=== PATIENT | male | born 1955 | race Two or more races ===

== ENCOUNTER 2018-02-16 19:02 | Inpatient (IN) | END 2018-02-19 17:24 | disposition home or self-care (01) | DRG 313 ==

== ENCOUNTER 2018-04-18 05:37 | Inpatient (IN) | END 2018-04-25 16:31 | disposition home health service (06) | DRG 221 ==

== ENCOUNTER 2018-05-30 19:52 | Inpatient (IN) | payer OTHER ==
[~2018-05-30] VITALS: Ht 170.2 cm; Wt 107.9 kg
[~2018-05-30 19:52] MED LIST: ASPI-817 PO; ATOR40TA68 PO; ERGO2000 PO; FURO40TA4 PO; GLIP10TA14 PO; LISI-313 PO; METF100010 PO; METO-429 PO; NITR0.4T32 SL; OXYC-438 PO; SITA100T11 PO; TAMS0.4C2 PO
[2018-05-30 20:00] VITALS: Ht 170.2 cm; Wt 107.9 kg
[2018-05-30] MEDS ORDERED: HYDROmorphONE 1 MG/ML SYG IV STA (20:14)
[2018-05-30] MEDS ORDERED: ONDANSETRON 4 MG INJ IV STA ×2 (20:14→21:46)
[2018-05-30] MEDS ORDERED: HYDROmorphONE 2 MG/ML SYG IV STA (21:36)
--- NOTE | 2018-05-30 21:58 | ERD ---
ER Documentation Chief Complaint Chief Complaint abd pain x3 hours +cp. s/p open heart surgery 1 mo ago HPI Patient is a 62-year-old male with coronary disease, hypertension, and diabetes who presents with abdominal pain. The patient denies chest pain. Abdominal pain started 3 hours ago with nausea and vomiting. The patient has no fevers and no diarrhea. The patient did have heart surgery 1 month ago. Patient does have a primary doctor as well. ROS All systems reviewed and are negative except as per history of present illness. Medications Home Meds Active Scripts Lisinopril* (Lisinopril*) 5 Mg Tablet, 5 MG PO DAILY for 30 Days, #30 TAB Prov:RUPALI CARVALHO MD 04/25/18 Atorvastatin* (Atorvastatin*) 40 Mg Tablet, 40 MG PO HS for 30 Days, TAB Prov:RUPALI CARVALHO MD 04/25/18 Furosemide* (Furosemide*) 40 Mg Tablet, 40 MG PO DAILY for 30 Days, TAB Prov:RUPALI CARVALHO MD 04/25/18 Oxycodone HCl/Acetaminophen (Oxycodone-Acetaminophen 5-325) 1 Each Tablet, 1 TAB PO Q3H PRN for PAIN LEVEL 1-5 for 14 Days, TAB Prov:RUPALI CARVALHO MD 04/25/18 Metoprolol Tartrate* (Lopressor*) 50 Mg Tab, 50 MG PO BID for 60 Days, TAB Prov:RUPALI CARVALHO MD 04/25/18 Nitroglycerin* (Nitroglycerin* SL) 0.4 Mg Tab.subl, 1 TAB SL Q5M PRN for ANGINA for 14 Days, #30 Prov:HERB PADGETT MD 02/19/18 Reported Medications Ergocalciferol (Vitamin D2) (VITAMIN D2) 2,000 Unit Tablet, 2000 UNIT PO DAILY, TAB 04/18/18 Glipizide* (Glipizide*) 10 Mg Tablet, 10 MG PO BID, TAB 04/18/18 Metformin Hcl* (Metformin Hcl*) 1,000 Mg Tablet, 1000 MG PO WITH BREAKFAST DINNE, #60 TAB 04/18/18 Sitagliptin* (Januvia*) 100 Mg Tablet, 100 MG PO DAILY, #30 TAB 02/16/18 Aspirin* (Aspirin* EC) 81 Mg Tablet.dr, 81 MG PO DAILY, TAB 02/16/18 Tamsulosin Hcl* (Tamsulosin Hcl*) 0.4 Mg Cap.er.24h, 0.4 MG PO HS, CAP 02/16/18 Allergies Allergies: Coded Allergies: No Known Allergy (Unverified , 04/18/18) PMhx/Soc History of Surgery: Yes (OPEN HEART SX) Anesthesia Reaction: No Hx Neurological Disorder: No Hx Respiratory Disorders: No Hx Cardiac Disorders: Yes (HTN, CAD, AORTIC VALVE STENOSIS) Hx Psychiatric Problems: No Hx Miscellaneous Medical Probl: Yes ( DM) Hx Alcohol Use: No (QUIT 05/15) Hx Substance Use: No Hx Tobacco Use: Yes (QUIT 05/15) Smoking Status: Former smoker FmHx Family History: diabetes Physical Exam Vitals Vital Signs Date Temp Pulse Resp B/P (MAP) Pulse Ox O2 O2 Flow FiO2 Time Delivery Rate 05/30/18 74 20 158/101 100 Room Air 20:21 (120) 05/30/18 97.8 65 22 214/134 97 20:00 (160) Physical Exam Const: Moderate distress Head: Atraumatic Eyes: Normal Conjunctiva ENT: Normal External Ears, Nose and Mouth. Neck: Full range of motion. No meningismus. Resp: Clear to auscultation bilaterally Cardio: Regular rate and rhythm, no murmurs Abd: Soft, diffuse tenderness to palpation without rebound or guarding Skin: No petechiae or rashes Back: No midline or flank tenderness Ext: No cyanosis, or edema Neur: Awake and alert Psych: Normal Mood and Affect Result Diagram: 05/30/18201505/30/18 2016 Results 24 hrs Laboratory Tests Test 05/30/18 20:16 05/30/18 21:00 White Blood Count 13.1 10^3/ul Red Blood Count 4.22 10^6/ul Hemoglobin 11.4 g/dl Hematocrit 34.8 % Mean Corpuscular Volume 82.5 fl Mean Corpuscular Hemoglobin 27.0 pg Mean Corpuscular Hemoglobin Concent 32.8 g/dl Red Cell Distribution Width 12.9 % Platelet Count 262 10^3/UL Mean Platelet Volume 10.2 fl Immature Granulocytes % 0.600 % Neutrophils % 69.9 % Lymphocytes % 22.2 % Monocytes % 5.0 % Eosinophils % 2.0 % Basophils % 0.3 % Nucleated Red Blood Cells % 0.0 /100WBC Immature Granulocytes # 0.080 10^3/ul Neutrophils # 9.2 10^3/ul Lymphocytes # 2.9 10^3/ul Monocytes # 0.7 10^3/ul Eosinophils # 0.3 10^3/ul Basophils # 0.0 10^3/ul Nucleated Red Blood Cells # 0.0 10^3/ul Prothrombin Time 11.9 Sec Prothrombin Time Ratio 0.9 INR International Normalized Ratio 0.87 Activated Partial Thromboplast Time 23.8 Sec Sodium Level 139 mmol/L Potassium Level 4.1 mmol/L Chloride Level 100 mmol/L Carbon Dioxide Level 28 mmol/L Anion Gap 11 Blood Urea Nitrogen 22 mg/dl Creatinine 0.96 mg/dl Est Glomerular Filtrat Rate mL/min > 60 mL/min Glucose Level 303 mg/dl Calcium Level 9.6 mg/dl Total Bilirubin 0.0 mg/dl Direct Bilirubin 0.00 mg/dl Indirect Bilirubin 0.0 mg/dl Aspartate Amino Transf (AST/SGOT) 17 IU/L Alanine Aminotransferase (ALT/SGPT) 24 IU/L Alkaline Phosphatase 109 IU/L Troponin I < 0.012 ng/ml Total Protein 7.7 g/dl Albumin 4.3 g/dl Globulin 3.40 g/dl Albumin/Globulin Ratio 1.26 Lipase 158 U/L Urine Color YELLOW Urine Clarity CLEAR Urine pH 5.0 Urine Specific [place] 1.027 Urine Ketones TRACE mg/dL Urine Nitrite NEGATIVE mg/dL Urine Bilirubin NEGATIVE mg/dL Urine Urobilinogen NEGATIVE mg/dL Urine Leukocyte Esterase NEGATIVE Lucinda/ul Urine Microscopic RBC 1 /HPF Urine Microscopic WBC 0 /HPF Urine Bacteria FEW /HPF Urine Hemoglobin NEGATIVE mg/dL Urine Glucose 3+ mg/dL Urine Total Protein 2+ mg/dl Current Medications Medications Dose Sig/Jewel Start Time Status Last (Trade) Ordered Route PRN Stop Time Admin Dose Reason Admin 1 mg ONCE STAT 05/30/18 DC 05/30/18 Hydromorphone IV 20:14 05/30/18 20:27 HCl 20:15 (Dilaudid) Ondansetron 4 mg ONCE STAT 05/30/18 DC 05/30/18 HCl (Zofran IV 20:14 05/30/18 20:27 Inj) 20:15 1 mg ONCE STAT 05/30/18 DC 05/30/18 Hydromorphone IV 21:36 1/2/19 21:51 HCl 21:37 (Dilaudid) Ampicillin 100 ml @ ONCE ONCE 05/30/18 Sodium/ 100 mls/hr IVPB 22:00 05/30/18 Sulbactam 22:59 Sodium Ondansetron 4 mg ONCE STAT 05/30/18 DC 05/30/18 HCl (Zofran IV 21:46 05/30/18 21:50 Inj) 21:47 Ondansetron 4 mg BRIDGE ORDER 05/30/18 HCl (Zofran PRN IV 22:00 05/31/18 Inj) NAUSEA AND/OR 21:59 VOMITING 650 mg ER BRIDGE 05/30/18 Acetaminophen PRN PO MILD 22:00 05/31/18 (Tylenol PAIN(1-3)OR 21:59 Tab) ELEVATED TEMP Procedures/MDM CT abdomen pelvis shows findings consistent with acute cholecystitis per radiology. Ultrasound of the gallbladder pending per radiology. X-ray read by radiology. EKG read by me: Rate/Rhythm: Regular rate and rhythm at a rate of 76 Intervals: Normal Impression: No evidence of ischemia or arrhythmia Patient is a 62-year-old male who presents with abdominal pain. The patient was found to have acute cholecystitis on CT scan of the abdomen and pelvis. The patient is a [facility] patient and I spoke with Dr. Padgett for admission to a medical surgical bed. Unasyn was given. I spoke with Dr. Cross her surgeon transcriptionist who will see the patient for consultation and likely gallbladder removal. Departure Diagnosis: Primary Impression: Acute cholecystitis Condition: GAB Mueller MD May 30, 2018 21:58
[2018-05-30] MEDS ORDERED: ONDANSETRON 4 MG INJ IV PRN ×2 (22:00→23:30)
[2018-05-30] MEDS ORDERED: ACETAMINOPHEN 325 MG TAB PO PRN ×2 (22:00→23:30)
[2018-05-30] MEDS ORDERED: AMPICILLIN/SULB 3 GM/NS (PMX) 100 ML IVPB ONE (22:00)
[2018-05-30] MEDS ORDERED: LANT3I SC (22:41)
[2018-05-30] MEDS: METOPROLOL 50 MG TAB PO SCH (23:24)
[2018-05-30] MEDS ORDERED: NITROGLYCERIN (SL) 0.4 MG TAB SL PRN (23:30)
[2018-05-30] MEDS ORDERED: morphine 2 MG INJ IV PRN (23:30)
[2018-05-30] MEDS ORDERED: MAGNESIUM HYDROXIDE 30ML CUP PO PRN (23:30)
[2018-05-30] MEDS ORDERED: hydrALAzine 20 MG INJ IV PRN (23:30)
[2018-05-30] MEDS ORDERED: BISACODYL (EC) 5 MG TAB PO PRN (23:30)
[2018-05-30] MEDS ORDERED: ACETAMINOPHEN 650 MG SUPP PR PRN (23:30)
[2018-05-30] MEDS ORDERED: NACL 0.9% 3 ML SYG IV SCH (23:30)
[2018-05-30] MEDS ORDERED: DOCUSATE SODIUM 100 MG CAP PO PRN (23:30)
[2018-05-31] VITALS (10 sets, daily range): BP systolic 105–211; BP diastolic 52–98; PULSE 91–111; RESP 18–20
[2018-05-31] MEDS: DEXTROSE 5%-0.45% NACL 1,000 ML IV SCH ×3 (00:54→19:50)
[2018-05-31] MEDS: morphine 4 MG/ML VIAL IV PRN ×3 (00:54→22:50)
[2018-05-31] MEDS: HYDROCODONE/APAP (5/325) TAB PO PRN ×2 (01:48→08:28)
[2018-05-31] MEDS: PANTOPRAZOLE 40 MG INJ IV SCH (06:00)
[2018-05-31] MEDS: METOPROLOL 50 MG TAB PO SCH ×2 (08:20→21:00)
[2018-05-31] MEDS: LISINOPRIL 5 MG TAB PO SCH (08:21)
[2018-05-31] MEDS: FUROSEMIDE 40 MG TAB PO SCH (08:21)
[2018-05-31] MEDS: CEFTRIAXONE 1 GM/50 ML (PMX) 50 ML IVPB SCH (08:21)
[2018-05-31] MEDS ORDERED: GLUCOSE GEL 15 GRAM TUBE PO PRN ×2 (08:30)
[2018-05-31] MEDS ORDERED: GLUCAGON 1 MG INJ IM PRN (08:30)
[2018-05-31] MEDS ORDERED: GLUCOSE GEL 15 GRAM TUBE BUCCAL PRN (08:30)
[2018-05-31] MEDS ORDERED: DEXTROSE 50% 50 ML SYRINGE IV PRN ×2 (08:30)
--- NOTE | 2018-05-31 09:27 | CONS ---
Date/Time of Note Date/Time of Note DATE: 05/31/18 TIME: 09:22 Assessment/Plan Assessment/Plan Assessment/Plan Disparity between CT scan and ultrasound regarding the presence of gallstone and cholecystitis. Recommend: HIDA scan. Further recommendations will be forthcoming based on the patient's further workup and clinical course. I will follow with you. Result Diagram: 05/30/18201505/30/182015 Results 24hrs Laboratory Tests Test 05/30/18 20:16 05/30/18 21:00 05/31/18 04:27 White Blood Count 13.1 #H Red Blood Count 4.22 #L Hemoglobin 11.4 L Hematocrit 34.8 L Mean Corpuscular Volume 82.5 Mean Corpuscular Hemoglobin 27.0 L Mean Corpuscular Hemoglobin Concent 32.8 Red Cell Distribution Width 12.9 Platelet Count 262 Mean Platelet Volume 10.2 Immature Granulocytes % 0.600 H Neutrophils % 69.9 Lymphocytes % 22.2 Monocytes % 5.0 Eosinophils % 2.0 Basophils % 0.3 Nucleated Red Blood Cells % 0.0 Immature Granulocytes # 0.080 H Neutrophils # 9.2 H Lymphocytes # 2.9 Monocytes # 0.7 Eosinophils # 0.3 Basophils # 0.0 Nucleated Red Blood Cells # 0.0 Prothrombin Time 11.9 Prothrombin Time Ratio 0.9 INR International Normalized Ratio 0.87 Activated Partial Thromboplast Time 23.8 Sodium Level 139 Potassium Level 4.1 Chloride Level 100 Carbon Dioxide Level 28 Anion Gap 11 Blood Urea Nitrogen 22 H Creatinine 0.96 Est Glomerular Filtrat Rate mL/min > 60 Glucose Level 303 H Calcium Level 9.6 Total Bilirubin 0.0 L Direct Bilirubin 0.00 Indirect Bilirubin 0.0 Aspartate Amino Transf (AST/SGOT) 17 Alanine Aminotransferase (ALT/SGPT) 24 Alkaline Phosphatase 109 Troponin I < 0.012 Total Protein 7.7 Albumin 4.3 Globulin 3.40 H Albumin/Globulin Ratio 1.26 Lipase 158 Urine Color YELLOW Urine Clarity CLEAR Urine pH 5.0 Urine Specific [place] 1.027 Urine Ketones TRACE A Urine Nitrite NEGATIVE Urine Bilirubin NEGATIVE Urine Urobilinogen NEGATIVE Urine Leukocyte Esterase NEGATIVE Urine Microscopic RBC 1 Urine Microscopic WBC 0 Urine Bacteria FEW A Urine Hemoglobin NEGATIVE Urine Glucose 3+ H Urine Total Protein 2+ H Hemoglobin A1c 7.7 H Consultation Date/Type/Reason Admit Date/Time May 30, 2018 at 21:50 Date of Consultation: May 31, 2018 Type of Consult General surgery Reason for Consultation Possible cholecystitis Hx of Present Illness The patient is a 62-year-old gentleman who was approximately 1 month status post open heart surgery. He presented to the emergency room with epigastric abdominal pain. CT scan showed a stone in the gallbladder with gallbladder wall thickening compatible with acute cholecystitis. A follow-up ultrasound however showed no gallstone, no gallbladder wall thickening and no evidence of cholecystitis. Since his admission. The patient's symptoms have improved if not resolved. He has had no fevers or chills. Constitutional: no complaints, improved Eyes: no complaints ENT: no complaints Respiratory: no complaints Cardiovascular: other (Open heart surgery 1 month ago. Hypertension. Aortic stenosis.) Gastrointestinal: pain (Epigastrium) Genitourinary: no complaints Musculoskeletal: no complaints Skin: no complaints Neurologic: no complaints Endocrine: other (Diabetes mellitus) Past Medical History Medical History: angina, coronary artery disease, other (Aortic stenosis) Medications Current Medications Furosemide (Lasix) 40 mg DAILY PO Last administered on 05/31/18at 08:21; Admin Dose 40 MG; Start 05/31/18 at 09:00 Lisinopril (Zestril) 5 mg DAILY PO Last administered on 05/31/18at 08:21; Admin Dose 5 MG; Start 05/31/18 at 09:00 Metoprolol Tartrate (Lopressor) 50 mg BID PO Last administered on 05/31/18at 08:20; Admin Dose 50 MG; Start 05/30/18 at 23:30 Atorvastatin Calcium (Lipitor) 40 mg HS PO ; Start 05/31/18 at 21:00 Nitroglycerin (Nitroglycerin (Sl Tab) 0.4 Mg) 1 tab Q5M PRN SL ANGINA; Start 05/30/18 at 23:30 Tamsulosin HCl (Flomax) 0.4 mg HS PO ; Start 05/31/18 at 21:00 Dextrose/Sodium Chloride 1,000 ml @ 60 mls/hr [id number] IV Last administered on 05/31/18at 00:54; Admin Dose 60 MLS/HR; Start 05/30/18 at 23:26 IV Flush (NS 3 ml) 3 ml PER PROTOCOL IV ; Start 05/30/18 at 23:30 Ondansetron HCl (Zofran Inj) 4 mg Q6H PRN IV NAUSEA AND/OR VOMITING; Start 05/30/18 at 23:30 Acetaminophen (Tylenol Tab) 650 mg Q6H PRN PO PAIN LEVEL 1-3 OR FEVER; Start 05/30/18 at 23:30 Acetaminophen (Tylenol Supp) 650 mg Q6H PRN MT PAIN LEVEL 1-3 OR FEVER; Start 05/30/18 at 23:30 Acetaminophen/ Hydrocodone Bitart ([place] (5/325)) 1 tab Q6H PRN PO MODERATE PAIN LEVEL 4-6 Last administered on 05/31/18at 08:28; Admin Dose 1 TAB; Start 05/30/18 at 23:30 Docusate Sodium (Colace) 100 mg Q12H PRN PO CONSTIPATION; Start 05/30/18 at 23:30 Magnesium Hydroxide (Milk Of Mag) 30 ml DAILY PRN PO CONSTIPATION; Start 05/30/18 at 23:30 Bisacodyl (Dulcolax) 5 mg DAILY PRN PO CONSTIPATION; Start 05/30/18 at 23:30 Pantoprazole (Protonix Iv) 40 mg DAILY@06 IV ; Start 05/31/18 at 06:00 Hydralazine HCl (Apresoline) 20 mg Q6 PRN IV for sbp>170 Last administered on 05/31/18at 02:59; Admin Dose 20 MG; Start 05/30/18 at 23:30 Ceftriaxone Sodium 50 ml @ 100 mls/hr DAILY IVPB Last administered on 05/31/18at 08:21; Admin Dose 100 MLS/HR; Start 05/31/18 at 09:00 Morphine Sulfate (morphine) 2 mg Q4H PRN IV SEVERE PAIN LEVEL 7-10 Last administered on 05/31/18at 05:05; Admin Dose 2 MG; Start 05/31/18 at 00:40 Diagnostic Test (Pha) (Accu-Chek) 1 ea 02 XX ; Start 06/01/18 at 02:00 Insulin Aspart (Novolog Insulin Pen) NOVOLOG *MODERATE* ALGORI... Q4 SC ; Start 05/31/18 at 09:00 Miscellaneous Information 1 ea NOTE XX ; Start 05/31/18 at 08:30 Glucose (Glutose) 15 gm Q15M PRN PO DECREASED GLUCOSE; Start 05/31/18 at 08:30 Glucose (Glutose) 22.5 gm Q15M PRN PO DECREASED GLUCOSE; Start 05/31/18 at 08:30 Dextrose (D50w Syringe) 25 ml Q15M PRN IV DECREASED GLUCOSE; Start 05/31/18 at 08:30 Dextrose (D50w Syringe) 50 ml Q15M PRN IV DECREASED GLUCOSE; Start 05/31/18 at 08:30 Glucagon (Glucagen) 1 mg Q15M PRN IM DECREASED GLUCOSE; Start 05/31/18 at 08:30 Glucose (Glutose) 15 gm Q15M PRN BUCCAL DECREASED GLUCOSE; Start 05/31/18 at 08:30 Allergies: Coded Allergies: No Known Allergy (Unverified , 05/30/18) Past Surgical History Past Surgical Hx: coronary bypass surgery, other Family History Significant Family History: no pertinent family hx Social History Smoking Status: Former smoker Exam/Review of Systems Vital Signs Vitals Vital Signs Date Temp Pulse Resp B/P (MAP) Pulse Ox O2 O2 Flow FiO2 Time Delivery Rate 05/31/18 108 172/78 08:51 (109) 05/31/18 98.3 18 99 Room Air 07:51 Intake and Output 05/30/18 05/30/18 05/31/18 1515:00 23:00 07:00 IntakeIntake Total 100 ml 400 ml OutputOutput Total 500 ml BalanceBalance 100 ml -100 ml Exam Constitutional: alert, oriented Psych: no complaints Head: normocephalic Eyes: nl conjunctiva ENMT: nl external ears & nose Neck: supple Respiratory: clear to auscultation Cardiovascular: regular rate and rhythm, other (Healed thoracotomy.) Gastrointestinal: soft, non-tender (There is a healing drain site in the epigastrium), distended Musculoskeletal: nl extremities to inspection Extremities: normal pulses Neurological: nl mental status Medications Medications Current Medications Furosemide (Lasix) 40 mg DAILY PO Last administered on 05/31/18at 08:21; Admin Dose 40 MG; Start 05/31/18 at 09:00 Lisinopril (Zestril) 5 mg DAILY PO Last administered on 05/31/18at 08:21; Admin Dose 5 MG; Start 05/31/18 at 09:00 Metoprolol Tartrate (Lopressor) 50 mg BID PO Last administered on 05/31/18at 08:20; Admin Dose 50 MG; Start 05/30/18 at 23:30 Atorvastatin Calcium (Lipitor) 40 mg HS PO ; Start 05/31/18 at 21:00 Nitroglycerin (Nitroglycerin (Sl Tab) 0.4 Mg) 1 tab Q5M PRN SL ANGINA; Start 05/30/18 at 23:30 Tamsulosin HCl (Flomax) 0.4 mg HS PO ; Start 05/31/18 at 21:00 Dextrose/Sodium Chloride 1,000 ml @ 60 mls/hr [id number] IV Last administered on 05/31/18at 00:54; Admin Dose 60 MLS/HR; Start 05/30/18 at 23:26 IV Flush (NS 3 ml) 3 ml PER PROTOCOL IV ; Start 05/30/18 at 23:30 Ondansetron HCl (Zofran Inj) 4 mg Q6H PRN IV NAUSEA AND/OR VOMITING; Start 05/30/18 at 23:30 Acetaminophen (Tylenol Tab) 650 mg Q6H PRN PO PAIN LEVEL 1-3 OR FEVER; Start 05/30/18 at 23:30 Acetaminophen (Tylenol Supp) 650 mg Q6H PRN MT PAIN LEVEL 1-3 OR FEVER; Start 05/30/18 at 23:30 Acetaminophen/ Hydrocodone Bitart ([place] (5/325)) 1 tab Q6H PRN PO MODERATE PAIN LEVEL 4-6 Last administered on 05/31/18at 08:28; Admin Dose 1 TAB; Start 05/30/18 at 23:30 Docusate Sodium (Colace) 100 mg Q12H PRN PO CONSTIPATION; Start 05/30/18 at 23:30 Magnesium Hydroxide (Milk Of Mag) 30 ml DAILY PRN PO CONSTIPATION; Start 05/30/18 at 23:30 Bisacodyl (Dulcolax) 5 mg DAILY PRN PO CONSTIPATION; Start 05/30/18 at 23:30 Pantoprazole (Protonix Iv) 40 mg DAILY@06 IV ; Start 05/31/18 at 06:00 Hydralazine HCl (Apresoline) 20 mg Q6 PRN IV for sbp>170 Last administered on 05/31/18at 02:59; Admin Dose 20 MG; Start 05/30/18 at 23:30 Ceftriaxone Sodium 50 ml @ 100 mls/hr DAILY IVPB Last administered on 05/31/18at 08:21; Admin Dose 100 MLS/HR; Start 05/31/18 at 09:00 Morphine Sulfate (morphine) 2 mg Q4H PRN IV SEVERE PAIN LEVEL 7-10 Last administered on 05/31/18at 05:05; Admin Dose 2 MG; Start 05/31/18 at 00:40 Diagnostic Test (Pha) (Accu-Chek) 1 ea 02 XX ; Start 06/01/18 at 02:00 Insulin Aspart (Novolog Insulin Pen) NOVOLOG *MODERATE* ALGORI... Q4 SC ; Start 05/31/18 at 09:00 Miscellaneous Information 1 ea NOTE XX ; Start 05/31/18 at 08:30 Glucose (Glutose) 15 gm Q15M PRN PO DECREASED GLUCOSE; Start 05/31/18 at 08:30 Glucose (Glutose) 22.5 gm Q15M PRN PO DECREASED GLUCOSE; Start 05/31/18 at 08:30 Dextrose (D50w Syringe) 25 ml Q15M PRN IV DECREASED GLUCOSE; Start 05/31/18 at 08:30 Dextrose (D50w Syringe) 50 ml Q15M PRN IV DECREASED GLUCOSE; Start 05/31/18 at 08:30 Glucagon (Glucagen) 1 mg Q15M PRN IM DECREASED GLUCOSE; Start 05/31/18 at 08:30 Glucose (Glutose) 15 gm Q15M PRN BUCCAL DECREASED GLUCOSE; Start 05/31/18 at 08:30 REGULO RUSSO MD May 31, 2018 09:27
[2018-05-31] MEDS: INSULIN ASPART [NOVOLOG] 3 ML PEN SC SCH ×4 (10:33→21:02)
--- NOTE | 2018-05-31 15:06 | QN ---
Documentation Comment seen and examined RUPALI CARVALHO MD May 31, 2018 15:06
[2018-05-31] MEDS: metroNIDAZOLE 500 MG/NS (PMX) 100 ML IVPB SCH ×2 (16:08→22:38)
--- NOTE | 2018-05-31 18:28 | CONS ---
Date/Time of Note Date/Time of Note DATE: 05/31/18 TIME: 18:23 Assessment/Plan Assessment/Plan Assessment/Plan Preoperative cardiac risk stratification Abdominal pain Severe aortic stenosis status post bioprosthetic 23 mm Medtronic aortic valve replacement 04/18/2018 Severe obstructive coronary artery disease status post CABG x4, KHANNA to LAD, SVG to diagonal artery sequence to OM1 sequenced to OM2 and ligation of left atrial appendage 04/18/2018 Diabetes Obesity -Patient presents with abdominal pain and underwent workup for possible cholecystitis. Patient with good exercise capacity after surgery, able to climb 2 flights of stairs without symptoms of chest pain or shortness of breath. ECG with no significant ischemic abnormalities. At the current time, patient is at an intermediate risk for any untoward cardiac events before gallbladder surgery, the benefits likely outweigh the risks. Result Diagram: 05/30/18201505/30/182015 Results 24hrs Laboratory Tests Test 05/30/18 20:16 05/30/18 21:00 05/31/18 04:27 05/31/18 10:26 White Blood Count 13.1 #H Red Blood Count 4.22 #L Hemoglobin 11.4 L Hematocrit 34.8 L Mean Corpuscular Volume 82.5 Mean Corpuscular 27.0 L Hemoglobin Mean Corpuscular 32.8 Hemoglobin Concent Red Cell Distribution 12.9 Width Platelet Count 262 Mean Platelet Volume 10.2 Immature Granulocytes % 0.600 H Neutrophils % 69.9 Lymphocytes % 22.2 Monocytes % 5.0 Eosinophils % 2.0 Basophils % 0.3 Nucleated Red Blood 0.0 Cells % Immature Granulocytes # 0.080 H Neutrophils # 9.2 H Lymphocytes # 2.9 Monocytes # 0.7 Eosinophils # 0.3 Basophils # 0.0 Nucleated Red Blood 0.0 Cells # Prothrombin Time 11.9 Prothrombin Time Ratio 0.9 INR International 0.87 Normalized Ratio Activated 23.8 Partial Thromboplast Time Sodium Level 139 Potassium Level 4.1 Chloride Level 100 Carbon Dioxide Level 28 Anion Gap 11 Blood Urea Nitrogen 22 H Creatinine 0.96 Est Glomerular Filtrat > 60 Rate mL/min Glucose Level 303 H Calcium Level 9.6 Total Bilirubin 0.0 L Direct Bilirubin 0.00 Indirect Bilirubin 0.0 Aspartate Amino 17 Transf (AST/SGOT) Alanine 24 Aminotransferase (ALT/SG PT) Alkaline Phosphatase 109 Troponin I < 0.012 Total Protein 7.7 Albumin 4.3 Globulin 3.40 H Albumin/Globulin Ratio 1.26 Lipase 158 Urine Color YELLOW Urine Clarity CLEAR Urine pH 5.0 Urine Specific Point 1.027 Urine Ketones TRACE A Urine Nitrite NEGATIVE Urine Bilirubin NEGATIVE Urine Urobilinogen NEGATIVE Urine Leukocyte Esterase NEGATIVE Urine Microscopic RBC 1 Urine Microscopic WBC 0 Urine Bacteria FEW A Urine Hemoglobin NEGATIVE Urine Glucose 3+ H Urine Total Protein 2+ H Hemoglobin A1c 7.7 H Bedside Glucose 252 H Test 05/31/18 13:26 05/31/18 17:41 Bedside Glucose 181 129 Consultation Date/Type/Reason Admit Date/Time May 30, 2018 at 21:50 Type of Consult cv Reason for Consultation Preoperative cardiac risk stratification Hx of Present Illness This is a 62-year-old male with past medical history of aortic stenosis status post aortic valve replacement, CAD status post CABG who presents with worsening abdominal pain and nausea over the past 1-2 days. Patient denies any chest pain, shortness of breath, dizziness or lightheadedness. He has been doing well since his recent open heart surgery. He is able to climb at least 2 flights of stairs without any symptoms of chest pain or shortness of breath. 12 point review of systems was performed with all pertinent positives and negatives mentioned above and all else is negative Past Medical History Medical History: coronary artery disease, diabetes, hypertension, other (Aortic stenosis) Medications Current Medications Furosemide (Lasix) 40 mg DAILY PO Last administered on 05/31/18at 08:21; Admin Dose 40 MG; Start 05/31/18 at 09:00 Lisinopril (Zestril) 5 mg DAILY PO Last administered on 05/31/18at 08:21; Admin Dose 5 MG; Start 05/31/18 at 09:00 Metoprolol Tartrate (Lopressor) 50 mg BID PO Last administered on 05/31/18at 08:20; Admin Dose 50 MG; Start 05/30/18 at 23:30 Atorvastatin Calcium (Lipitor) 40 mg HS PO ; Start 05/31/18 at 21:00 Nitroglycerin (Nitroglycerin (Sl Tab) 0.4 Mg) 1 tab Q5M PRN SL ANGINA; Start 05/30/18 at 23:30 Tamsulosin HCl (Flomax) 0.4 mg HS PO ; Start 05/31/18 at 21:00 Dextrose/Sodium Chloride 1,000 ml @ 60 mls/hr [id number] IV Last administered on 05/31/18at 00:54; Admin Dose 60 MLS/HR; Start 05/30/18 at 23:26 IV Flush (NS 3 ml) 3 ml PER PROTOCOL IV ; Start 05/30/18 at 23:30 Ondansetron HCl (Zofran Inj) 4 mg Q6H PRN IV NAUSEA AND/OR VOMITING; Start 05/30/18 at 23:30 Acetaminophen (Tylenol Tab) 650 mg Q6H PRN PO PAIN LEVEL 1-3 OR FEVER; Start 05/30/18 at 23:30 Acetaminophen (Tylenol Supp) 650 mg Q6H PRN [place] PAIN LEVEL 1-3 OR FEVER; Start 05/30/18 at 23:30 Acetaminophen/ Hydrocodone Bitart ([place] (5/325)) 1 tab Q6H PRN PO MODERATE PAIN LEVEL 4-6 Last administered on 05/31/18at 08:28; Admin Dose 1 TAB; Start 05/30/18 at 23:30 Docusate Sodium (Colace) 100 mg Q12H PRN PO CONSTIPATION; Start 05/30/18 at 23:30 Magnesium Hydroxide (Milk Of Mag) 30 ml DAILY PRN PO CONSTIPATION; Start 05/30/18 at 23:30 Bisacodyl (Dulcolax) 5 mg DAILY PRN PO CONSTIPATION; Start 05/30/18 at 23:30 Pantoprazole (Protonix Iv) 40 mg DAILY@06 IV ; Start 05/31/18 at 06:00 Hydralazine HCl (Apresoline) 20 mg Q6 PRN IV for sbp>170 Last administered on 05/31/18at 02:59; Admin Dose 20 MG; Start 05/30/18 at 23:30 Ceftriaxone Sodium 50 ml @ 100 mls/hr DAILY IVPB Last administered on 05/31/18at 08:21; Admin Dose 100 MLS/HR; Start 05/31/18 at 09:00 Morphine Sulfate (morphine) 2 mg Q4H PRN IV SEVERE PAIN LEVEL 7-10 Last administered on 05/31/18at 05:05; Admin Dose 2 MG; Start 05/31/18 at 00:40 Diagnostic Test (Pha) (Accu-Chek) 1 ea 02 XX ; Start 06/01/18 at 02:00 Insulin Aspart (Novolog Insulin Pen) NOVOLOG *MODERATE* ALGORI... Q4 SC Last administered on 05/31/18at 13:32; Admin Dose 4 UNIT; Start 05/31/18 at 09:00 Miscellaneous Information 1 ea NOTE XX ; Start 05/31/18 at 08:30 Glucose (Glutose) 15 gm Q15M PRN PO DECREASED GLUCOSE; Start 05/31/18 at 08:30 Glucose (Glutose) 22.5 gm Q15M PRN PO DECREASED GLUCOSE; Start 05/31/18 at 08:30 Dextrose (D50w Syringe) 25 ml Q15M PRN IV DECREASED GLUCOSE; Start 05/31/18 at 08:30 Dextrose (D50w Syringe) 50 ml Q15M PRN IV DECREASED GLUCOSE; Start 05/31/18 at 08:30 Glucagon (Glucagen) 1 mg Q15M PRN IM DECREASED GLUCOSE; Start 05/31/18 at 08:30 Glucose (Glutose) 15 gm Q15M PRN BUCCAL DECREASED GLUCOSE; Start 05/31/18 at 08:30 Metronidazole 100 ml @ 100 mls/hr Q8 IVPB Last administered on 05/31/18at 16:08; Admin Dose 100 MLS/HR; Start 05/31/18 at 15:30 Allergies: Coded Allergies: No Known Allergy (Unverified , 05/30/18) Past Surgical History Past Surgical Hx: coronary bypass surgery, other (Aortic valve replacement) Family History Significant Family History: no pertinent family hx Social History Smoking Status: Former smoker Exam/Review of Systems Vital Signs Vitals Vital Signs Date Temp Pulse Resp B/P (MAP) Pulse Ox O2 O2 Flow FiO2 Time Delivery Rate 05/31/18 98.6 91 18 122/64 100 Room Air 15:03 (83) Intake and Output 05/30/18 05/30/18 05/31/18 1414:59 22:59 06:59 IntakeIntake Total 100 ml 400 ml OutputOutput Total 500 ml BalanceBalance 100 ml -100 ml Exam No apparent distress Constitutional: alert, oriented, obese Head: normocephalic Respiratory: clear to auscultation, normal air movement Cardiovascular: regular rate and rhythm, other (S1-S2 heard) Gastrointestinal: soft, bowel sounds, other (Mild discomfort with palpation) Extremities: other (No significant lower extremity edema) Medications Medications Current Medications Furosemide (Lasix) 40 mg DAILY PO Last administered on 05/31/18at 08:21; Admin Dose 40 MG; Start 05/31/18 at 09:00 Lisinopril (Zestril) 5 mg DAILY PO Last administered on 05/31/18at 08:21; Admin Dose 5 MG; Start 05/31/18 at 09:00 Metoprolol Tartrate (Lopressor) 50 mg BID PO Last administered on 05/31/18at 08:20; Admin Dose 50 MG; Start 05/30/18 at 23:30 Atorvastatin Calcium (Lipitor) 40 mg HS PO ; Start 05/31/18 at 21:00 Nitroglycerin (Nitroglycerin (Sl Tab) 0.4 Mg) 1 tab Q5M PRN SL ANGINA; Start 05/30/18 at 23:30 Tamsulosin HCl (Flomax) 0.4 mg HS PO ; Start 05/31/18 at 21:00 Dextrose/Sodium Chloride 1,000 ml @ 60 mls/hr [id number] IV Last administered on 05/31/18at 00:54; Admin Dose 60 MLS/HR; Start 05/30/18 at 23:26 IV Flush (NS 3 ml) 3 ml PER PROTOCOL IV ; Start 05/30/18 at 23:30 Ondansetron HCl (Zofran Inj) 4 mg Q6H PRN IV NAUSEA AND/OR VOMITING; Start 05/30/18 at 23:30 Acetaminophen (Tylenol Tab) 650 mg Q6H PRN PO PAIN LEVEL 1-3 OR FEVER; Start 05/30/18 at 23:30 Acetaminophen (Tylenol Supp) 650 mg Q6H PRN [place] PAIN LEVEL 1-3 OR FEVER; Start 05/30/18 at 23:30 Acetaminophen/ Hydrocodone Bitart ([place] (5/325)) 1 tab Q6H PRN PO MODERATE PAIN LEVEL 4-6 Last administered on 05/31/18at 08:28; Admin Dose 1 TAB; Start 05/30/18 at 23:30 Docusate Sodium (Colace) 100 mg Q12H PRN PO CONSTIPATION; Start 05/30/18 at 23:30 Magnesium Hydroxide (Milk Of Mag) 30 ml DAILY PRN PO CONSTIPATION; Start 05/30/18 at 23:30 Bisacodyl (Dulcolax) 5 mg DAILY PRN PO CONSTIPATION; Start 05/30/18 at 23:30 Pantoprazole (Protonix Iv) 40 mg DAILY@06 IV ; Start 05/31/18 at 06:00 Hydralazine HCl (Apresoline) 20 mg Q6 PRN IV for sbp>170 Last administered on 05/31/18at 02:59; Admin Dose 20 MG; Start 05/30/18 at 23:30 Ceftriaxone Sodium 50 ml @ 100 mls/hr DAILY IVPB Last administered on 05/31/18at 08:21; Admin Dose 100 MLS/HR; Start 05/31/18 at 09:00 Morphine Sulfate (morphine) 2 mg Q4H PRN IV SEVERE PAIN LEVEL 7-10 Last administered on 05/31/18at 05:05; Admin Dose 2 MG; Start 05/31/18 at 00:40 Diagnostic Test (Pha) (Accu-Chek) 1 ea 02 XX ; Start 06/01/18 at 02:00 Insulin Aspart (Novolog Insulin Pen) NOVOLOG *MODERATE* ALGORI... Q4 SC Last administered on 05/31/18at 13:32; Admin Dose 4 UNIT; Start 05/31/18 at 09:00 Miscellaneous Information 1 ea NOTE XX ; Start 05/31/18 at 08:30 Glucose (Glutose) 15 gm Q15M PRN PO DECREASED GLUCOSE; Start 05/31/18 at 08:30 Glucose (Glutose) 22.5 gm Q15M PRN PO DECREASED GLUCOSE; Start 05/31/18 at 08:30 Dextrose (D50w Syringe) 25 ml Q15M PRN IV DECREASED GLUCOSE; Start 05/31/18 at 08:30 Dextrose (D50w Syringe) 50 ml Q15M PRN IV DECREASED GLUCOSE; Start 05/31/18 at 08:30 Glucagon (Glucagen) 1 mg Q15M PRN IM DECREASED GLUCOSE; Start 05/31/18 at 08:30 Glucose (Glutose) 15 gm Q15M PRN BUCCAL DECREASED GLUCOSE; Start 05/31/18 at 08:30 Metronidazole 100 ml @ 100 mls/hr Q8 IVPB Last administered on 05/31/18at 16:08; Admin Dose 100 MLS/HR; Start 05/31/18 at 15:30 Imaging Imaging ECG sinus rhythm, normal QRS duration, nonspecific ST abnormalities Glenn Burk DO May 31, 2018 18:28
[2018-05-31] MEDS ORDERED: ATORVASTATIN 40 MG TAB PO SCH (21:00)
[2018-05-31] MEDS ORDERED: TAMSULOSIN (SR) 0.4 MG CAP PO SCH (21:00)
--- NOTE | 2018-05-31 21:08 | HP ---
DATE OF ADMISSION: 05/30/2018 REASON FOR ADMISSION: Abdominal pain. HISTORY OF PRESENT ILLNESS: This is a 62-year-old male with a past medical history of noninsulin dep endent diabetes mellitus, hypertension, tobacco use, BPH, dyslipidemia, who was recently admitted and discharged in 03/2018 secondary to a CABG and aortic valve replacement. Patient was discharged in s table condition. Patient said that he has been doing fine until today. He had eaten a pizza and als o ate some fajitas, after that started having lower abdominal pain. According to the patient, last 2 days he was not passing gas but finally passed some gas, it made him worried, and came to the emerge ncy department. He was also having some nausea and some episodes of vomiting. According to the garrett ent, he also had an episode 4 years ago. On arrival to the ED, vital signs initially blood pressure was 214/134, then 183/82, heart rate of 101, white count was 13.1, hemoglobin 11.4, platelet count 26 2, glucose of 303, LFTs within normal limit, total bilirubin 0, lipase was 158. UA showed 3+ glucose , 2+ protein, trace ketones. The patient had CT of the abdomen and pelvis that showed findings sugge stive of acute cholecystitis, no evidence of bowel obstruction or inflammation, no appendicitis, no r enal or ureteral calculi, bladder calcification, fat-containing upper abdominal midline hernia. Also had a gallbladder ultrasound that showed normal sonographic findings. The patient was admitted for further management. Patient has also been seen by Dr. Cross currently. PAST MEDICAL HISTORY: 1. Diabetes. 2. Hypertension. 3. Hyperlipidemia. 4. Obesity. 5. Midline hernia. 6. Tobacco use. 7. BPH. ALLERGIES: NONE. PAST SURGICAL HISTORY: Coronary artery bypass and aortic valve replacement. SOCIAL HISTORY: Ex-smoker. Denies any history of alcohol, any recreational drug use. FAMILY HISTORY: Noncontributory. MEDICATIONS: Taking at home: 1. Aspirin 81. 2. Atorvastatin 40. 3. Flomax 0.4. 4. Metoprolol 50 b.i.d. 5. Nitroglycerin. 6. Lasix 40. 7. Glipizide 10 b.i.d. 8. Lantus 50. 9. Metformin 1000 b.i.d. 10. Januvia 100. REVIEW OF SYSTEMS: The patient complains of diffuse lower abdominal pain associated with episodes of nausea, vomiting. Denied any diarrhea. No fevers and chills. Denies any hematemesis, any melena, any bright red per rectum. Patient said that he was not passing gas for 2 days, but finally passing it. Denied any headache, any blurry vision, any focal neurological deficits. PHYSICAL EXAMINATION: VITAL SIGNS: Currently blood pressure 130/64, afebrile, heart rate 100, respiratory rate 16. GENERAL: The patient is awake, alert, oriented, does not appear to be in any acute distress. HEENT: Pupils equal, round, reactive to light. NECK: Supple, no JVD. HEART: Regular rate and rhythm. ABDOMEN: Some tenderness present in the right upper quadrant. Positive bowel sounds. Soft. Patien t has a midline hernia, reducible. EXTREMITIES: No clubbing, cyanosis, or edema. LABORATORY DATA: Shows white count of 13.91, hemoglobin 11.4, platelet count 262. BMP showed glucos e of 252. HbA1c 7.7. Lipase 158. LFTs within normal limit. UA is negative. Chest x-ray is mild l eft lung base atelectasis. CT of the abdomen and pelvis findings suggestive of acute cholecystitis; however, abdominal ultrasound is negative. ASSESSMENT AND PLAN: This is a 62-year-old male who presented with: 1. Diffuse lower abdominal pain with some mild tenderness in the right upper quadrant. CT of the ab domen and pelvis suggestive of acute cholecystitis; however, ultrasound is negative. Pending HIDA pe r surgery. 2. Diabetes. 3. Leukocytosis. 4. Hypertension. 5. Hyperlipidemia. 6. 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 7. Tobacco use. 8. History of BPH. PLAN: At this period of time, the patient is admitted to med/surg. The patient is n.p.o. HIDA is p ending. We will start the patient on some antibiotics. Dr. Cross has been following. We will also call cardiology consultation in case the patient needs surgery, for clearance. The rest of the umer tment will depend on the patient's hospitalization course. Dictated By: RUPALI JOHNSON/OLVIN Conf#: [id number] DID#: [id number]
[2018-06-01] MEDS: INSULIN ASPART [NOVOLOG] 3 ML PEN SC SCH ×3 (01:00→08:41)
[2018-06-01] MEDS ORDERED: ACCU-CHEK XX SCH (02:00)
[2018-06-01 03:00] VITALS: BP 108/54; PULSE 92; RESP 17
[2018-06-01] MEDS: PANTOPRAZOLE 40 MG INJ IV SCH (06:00)
[2018-06-01] MEDS: metroNIDAZOLE 500 MG/NS (PMX) 100 ML IVPB SCH ×2 (06:26→14:14)
[2018-06-01 07:48] VITALS: BP 145/66; PULSE 98; RESP 18
[2018-06-01] MEDS: CEFTRIAXONE 1 GM/50 ML (PMX) 50 ML IVPB SCH (08:31)
[2018-06-01] MEDS: LISINOPRIL 5 MG TAB PO SCH (08:33)
[2018-06-01] MEDS: METOPROLOL 50 MG TAB PO SCH (08:33)
[2018-06-01] MEDS: FUROSEMIDE 40 MG TAB PO SCH (08:33)
--- NOTE | 2018-06-01 09:34 | QN ---
Documentation Comment HIDA scan results noted Leukocytosis has resolved. Patient has no abdominal pain. LFTs are normal Right upper quadrant is soft and nontender to deep palpation Impression: Clinically this patient does not have acute cholecystitis. HIDA findings may be compatible with a chronic hydrops of the gallbladder My recommendation is to feed the patient. If he tolerates feedings he can be discharged REGULO RUSSO MD Jun 01, 2018 09:34
[2018-06-01] MEDS ORDERED: Insulin NOVOLOG SS MODERATE Algorithm (SS with meals and bedtime) SC SCH (11:40)
--- NOTE | 2018-06-01 12:34 | CONS ---
Date/Time of Note Date/Time of Note DATE: 06/01/18 TIME: 12:28 Assessment/Plan Assessment/Plan Assessment/Plan Preoperative cardiac risk stratification Abdominal pain Severe aortic stenosis status post bioprosthetic 23 mm Medtronic aortic valve replacement 04/18/2018 Severe obstructive coronary artery disease status post CABG x4, KHANNA to LAD, SVG to diagonal artery sequence to OM1 sequenced to OM2 and ligation of left atrial appendage 04/18/2018 Diabetes Obesity -Patient undergoing GI workup for abdominal pain possible cholecystitis. Please refer to my consult note 05/31/2018 discussing preoperative cardiac risk s tratification. Result Diagram: 06/01/18 0444 06/01/18 0444 Results 24hrs Laboratory Tests Test 05/31/18 13:26 05/31/18 17:41 05/31/18 20:56 06/01/18 01:53 Bedside Glucose 181 129 163 163 Test 06/01/18 04:44 06/01/18 04:49 06/01/18 08:36 White Blood Count 7.8 # Red Blood Count 4.02 L Hemoglobin 10.9 L Hematocrit 32.5 L Mean Corpuscular Volume 80.8 L Mean Corpuscular 27.1 L Hemoglobin Mean Corpuscular 33.5 Hemoglobin Concent Red Cell Distribution 13.2 Width Platelet Count 228 Mean Platelet Volume 10.2 Immature Granulocytes % 0.400 Neutrophils % 60.3 Lymphocytes % 28.6 Monocytes % 7.3 Eosinophils % 3.0 Basophils % 0.4 Nucleated Red Blood 0.0 Cells % Immature Granulocytes # 0.030 Neutrophils # 4.7 Lymphocytes # 2.2 Monocytes # 0.6 Eosinophils # 0.2 Basophils # 0.0 Nucleated Red Blood 0.0 Cells # Sodium Level 139 Potassium Level 3.6 Chloride Level 101 Carbon Dioxide Level 32 H Anion Gap 6 Blood Urea Nitrogen 20 Creatinine 0.93 Est Glomerular Filtrat > 60 Rate mL/min Glucose Level 192 # Calcium Level 9.0 Total Bilirubin 0.3 Direct Bilirubin 0.00 Indirect Bilirubin 0.3 Aspartate Amino 23 Transf (AST/SGOT) Alanine 21 Aminotransferase (ALT/SG PT) Alkaline Phosphatase 98 Total Protein 6.8 Albumin 3.5 Globulin 3.30 H Albumin/Globulin Ratio 1.06 Bedside Glucose 187 178 Consultation Date/Type/Reason Admit Date/Time May 30, 2018 at 21:50 Initial Consult Date 05/31/18 Type of Consult cv 24 HR Interval Summary Free Text/Dictation Patient seen and examined. Denies chest pain, shortness of breath or palpitations Exam/Review of Systems Vital Signs Vitals Vital Signs Date Temp Pulse Resp B/P (MAP) Pulse Ox O2 O2 Flow FiO2 Time Delivery Rate 06/01/18 98.5 98 18 145/66 95 07:48 (92) 06/01/18 Room Air 03:00 Intake and Output 05/31/18 05/31/18 06/01/18 1414:59 22:59 06:59 IntakeIntake Total 50 ml 530 ml OutputOutput Total 600 ml 300 ml BalanceBalance -550 ml 230 ml Exam No apparent distress Constitutional: alert, oriented, obese Head: normocephalic Respiratory: clear to auscultation, normal air movement Cardiovascular: regular rate and rhythm, other (S1-S2 heard) Gastrointestinal: soft, bowel sounds Extremities: other (No significant edema) Skin: other (Chest wall incision site from chest tube with minimal serosanguineous drainage) Medications Medications Current Medications Furosemide (Lasix) 40 mg DAILY PO Last administered on 06/01/18 08:33; Admin Dose 40 MG; Start 05/31/18 at 09:00 Lisinopril (Zestril) 5 mg DAILY PO Last administered on 06/01/18 08:33; Admin Dose 5 MG; Start 05/31/18 at 09:00 Metoprolol Tartrate (Lopressor) 50 mg BID PO Last administered on 06/01/18 08:33; Admin Dose 50 MG; Start 05/30/18 at 23:30 Atorvastatin Calcium (Lipitor) 40 mg HS PO Last administered on 05/31/18 20:51; Admin Dose 40 MG; Start 05/31/18 at 21:00 Nitroglycerin (Nitroglycerin (Sl Tab) 0.4 Mg) 1 tab Q5M PRN SL ANGINA; Start 05/30/18 at 23:30 Tamsulosin HCl (Flomax) 0.4 mg HS PO Last administered on 05/31/18 20:51; Admin Dose 0.4 MG; Start 05/31/18 at 21:00 Dextrose/Sodium Chloride 1,000 ml @ 60 mls/hr [id number] IV Last administered on 05/31/18 19:50; Admin Dose 60 MLS/HR; Start 05/30/18 at 23:26 IV Flush (NS 3 ml) 3 ml PER PROTOCOL IV ; Start 05/30/18 at 23:30 Ondansetron HCl (Zofran Inj) 4 mg Q6H PRN IV NAUSEA AND/OR VOMITING; Start 05/30/18 at 23:30 Acetaminophen (Tylenol Tab) 650 mg Q6H PRN PO PAIN LEVEL 1-3 OR FEVER; Start 05/30/18 at 23:30 Acetaminophen (Tylenol Supp) 650 mg Q6H PRN [place] PAIN LEVEL 1-3 OR FEVER; Start 05/30/18 at 23:30 Acetaminophen/ Hydrocodone Bitart ([place] (5/325)) 1 tab Q6H PRN PO MODERATE PAIN LEVEL 4-6 Last administered on 05/31/18at 08:28; Admin Dose 1 TAB; Start 05/30/18 at 23:30 Docusate Sodium (Colace) 100 mg Q12H PRN PO CONSTIPATION; Start 05/30/18 at 23:30 Magnesium Hydroxide (Milk Of Mag) 30 ml DAILY PRN PO CONSTIPATION; Start 05/30/18 at 23:30 Bisacodyl (Dulcolax) 5 mg DAILY PRN PO CONSTIPATION; Start 05/30/18 at 23:30 Pantoprazole (Protonix Iv) 40 mg DAILY@06 IV ; Start 05/31/18 at 06:00 Hydralazine HCl (Apresoline) 20 mg Q6 PRN IV for sbp>170 Last administered on 05/31/18at 02:59; Admin Dose 20 MG; Start 05/30/18 at 23:30 Ceftriaxone Sodium 50 ml @ 100 mls/hr DAILY IVPB Last administered on 06/01/18at 08:31; Admin Dose 100 MLS/HR; Start 05/31/18 at 09:00 Morphine Sulfate (morphine) 2 mg Q4H PRN IV SEVERE PAIN LEVEL 7-10 Last administered on 05/31/18at 22:50; Admin Dose 2 MG; Start 05/31/18 at 00:40 Diagnostic Test (Pha) (Accu-Chek) 1 ea 02 XX ; Start 06/01/18 at 02:00 Miscellaneous Information 1 ea NOTE XX ; Start 05/31/18 at 08:30 Glucose (Glutose) 15 gm Q15M PRN PO DECREASED GLUCOSE; Start 05/31/18 at 08:30 Glucose (Glutose) 22.5 gm Q15M PRN PO DECREASED GLUCOSE; Start 05/31/18 at 08:30 Dextrose (D50w Syringe) 25 ml Q15M PRN IV DECREASED GLUCOSE; Start 05/31/18 at 08:30 Dextrose (D50w Syringe) 50 ml Q15M PRN IV DECREASED GLUCOSE; Start 05/31/18 at 08:30 Glucagon (Glucagen) 1 mg Q15M PRN IM DECREASED GLUCOSE; Start 05/31/18 at 08:30 Glucose (Glutose) 15 gm Q15M PRN BUCCAL DECREASED GLUCOSE; Start 05/31/18 at 08:30 Metronidazole 100 ml @ 100 mls/hr Q8 IVPB Last administered on 06/01/18at 06:26; Admin Dose 100 MLS/HR; Start 05/31/18 at 15:30 Insulin Aspart (Novolog Insulin Pen) (Adult SC Insulin - Moder... WITH MEALS BEDTIME SC ; Start 06/01/18 at 11:40 Glenn Burk DO Jun 01, 2018 12:34
--- NOTE | 2018-06-01 12:55 | PN ---
FELIPE DELANEY 06/01/18 1255: Date/Time of Note Date/Time of Note DATE: 06/01/18 TIME: 12:52 Assessment/Plan VTE [place]axis [place] [facility] [place]: 3 [place] [facility] [place] Yes Pharmacological prophylaxis: NA/contraindicated Pharm contraindication: surgical contra Lines/Catheters IV Catheter Type (from [facility]): Peripheral IV Urinary Cath still in place: No Assessment/Plan Hospital Course 1. Diffuse lower abdominal pain with some mild tenderness in the right upper quadrant. CT of the abdomen and pelvis suggestive of acute cholecystitis; [facility], ultrasound is negative. HIDA is negative. 2. Diabetes mellitus uncontrolled. 3. Leukocytosis. 4. Hypertension. 5. Hyperlipidemia. 6. 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 7. Tobacco use. 8. History of BPH. Assessment/Plan -med/surg. -The patient is tolerated diet well -HIDA is negative -c.w IV antibiotics. -appreciate surgical consult Dr. Cross -cardiology Dr Burk - GI prophylaxis Protonix -DVT prophylaxis SCD Result Diagram: 06/01/18 0444 06/01/18 0444 Results 24hrs Laboratory Tests Test 05/31/18 13:26 05/31/18 17:41 05/31/18 20:56 06/01/18 01:53 Bedside Glucose 181 129 163 163 Test 06/01/18 04:44 06/01/18 04:49 06/01/18 08:36 White Blood Count 7.8 # Red Blood Count 4.02 L Hemoglobin 10.9 L Hematocrit 32.5 L Mean Corpuscular Volume 80.8 L Mean Corpuscular 27.1 L Hemoglobin Mean Corpuscular 33.5 Hemoglobin Concent Red Cell Distribution 13.2 Width Platelet Count 228 Mean Platelet Volume 10.2 Immature Granulocytes % 0.400 Neutrophils % 60.3 Lymphocytes % 28.6 Monocytes % 7.3 Eosinophils % 3.0 Basophils % 0.4 Nucleated Red Blood 0.0 Cells % Immature Granulocytes # 0.030 Neutrophils # 4.7 Lymphocytes # 2.2 Monocytes # 0.6 Eosinophils # 0.2 Basophils # 0.0 Nucleated Red Blood 0.0 Cells # Sodium Level 139 Potassium Level 3.6 Chloride Level 101 Carbon Dioxide Level 32 H Anion Gap 6 Blood Urea Nitrogen 20 Creatinine 0.93 Est Glomerular Filtrat > 60 Rate mL/min Glucose Level 192 # Calcium Level 9.0 Total Bilirubin 0.3 Direct Bilirubin 0.00 Indirect Bilirubin 0.3 Aspartate Amino 23 Transf (AST/SGOT) Alanine 21 Aminotransferase (ALT/SG PT) Alkaline Phosphatase 98 Total Protein 6.8 Albumin 3.5 Globulin 3.30 H Albumin/Globulin Ratio 1.06 Bedside Glucose 187 178 Subjective 24 Hr Interval Summary Constitutional: no complaints, improved Exam/Review of Systems Vital Signs Vitals Vital Signs Date Temp Pulse Resp B/P (MAP) Pulse Ox O2 O2 Flow FiO2 Time Delivery Rate 06/01/18 98.5 98 18 145/66 95 07:48 (92) 06/01/18 Room Air 03:00 Intake and Output 05/31/18 05/31/18 06/01/18 1414:59 22:59 06:59 IntakeIntake Total 50 ml 530 ml OutputOutput Total 600 ml 300 ml BalanceBalance -550 ml 230 ml Exam Constitutional: alert, oriented Respiratory: clear to auscultation Cardiovascular: regular rate and rhythm Gastrointestinal: surgical scars Medications Medications Current Medications Furosemide (Lasix) 40 mg DAILY PO Last administered on 06/01/18 08:33; Admin Dose 40 MG; Start 05/31/18 at 09:00 Lisinopril (Zestril) 5 mg DAILY PO Last administered on 06/01/18 08:33; Admin Dose 5 MG; Start 05/31/18 at 09:00 Metoprolol Tartrate (Lopressor) 50 mg BID PO Last administered on 06/01/18 08:33; Admin Dose 50 MG; Start 05/30/18 at 23:30 Atorvastatin Calcium (Lipitor) 40 mg HS PO Last administered on 05/31/18 20:51; Admin Dose 40 MG; Start 05/31/18 at 21:00 Nitroglycerin (Nitroglycerin (Sl Tab) 0.4 Mg) 1 tab Q5M PRN SL ANGINA; Start 05/30/18 at 23:30 Tamsulosin HCl (Flomax) 0.4 mg HS PO Last administered on 05/31/18 20:51; Admin Dose 0.4 MG; Start 05/31/18 at 21:00 Dextrose/Sodium Chloride 1,000 ml @ 60 mls/hr [id number] IV Last administered on 1/3/19at 19:50; Admin Dose 60 MLS/HR; Start 05/30/18 at 23:26 IV Flush (NS 3 ml) 3 ml PER PROTOCOL IV ; Start 05/30/18 at 23:30 Ondansetron HCl (Zofran Inj) 4 mg Q6H PRN IV NAUSEA AND/OR VOMITING; Start 05/30/18 at 23:30 Acetaminophen (Tylenol Tab) 650 mg Q6H PRN PO PAIN LEVEL 1-3 OR FEVER; Start 05/30/18 at 23:30 Acetaminophen (Tylenol Supp) 650 mg Q6H PRN AL PAIN LEVEL 1-3 OR FEVER; Start 05/30/18 at 23:30 Acetaminophen/ Hydrocodone Bitart (Scurry (5/325)) 1 tab Q6H PRN PO MODERATE PAIN LEVEL 4-6 Last administered on 05/31/18at 08:28; Admin Dose 1 TAB; Start 05/30/18 at 23:30 Docusate Sodium (Colace) 100 mg Q12H PRN PO CONSTIPATION; Start 05/30/18 at 23:30 Magnesium Hydroxide (Milk Of Mag) 30 ml DAILY PRN PO CONSTIPATION; Start 05/30/18 at 23:30 Bisacodyl (Dulcolax) 5 mg DAILY PRN PO CONSTIPATION; Start 05/30/18 at 23:30 Pantoprazole (Protonix Iv) 40 mg DAILY@06 IV ; Start 05/31/18 at 06:00 Hydralazine HCl (Apresoline) 20 mg Q6 PRN IV for sbp>170 Last administered on at 02:59; Admin Dose 20 MG; Start 05/30/18 at 23:30 Ceftriaxone Sodium 50 ml @ 100 mls/hr DAILY IVPB Last administered on 06/01/18at 08:31; Admin Dose 100 MLS/HR; Start 05/31/18 at 09:00 Morphine Sulfate (morphine) 2 mg Q4H PRN IV SEVERE PAIN LEVEL 7-10 Last administered on 05/31/18at 22:50; Admin Dose 2 MG; Start 05/31/18 at 00:40 Diagnostic Test (Pha) (Accu-Chek) 1 ea 02 XX ; Start 06/01/18 at 02:00 Miscellaneous Information 1 ea NOTE XX ; Start 05/31/18 at 08:30 Glucose (Glutose) 15 gm Q15M PRN PO DECREASED GLUCOSE; Start 05/31/18 at 08:30 Glucose (Glutose) 22.5 gm Q15M PRN PO DECREASED GLUCOSE; Start 05/31/18 at 08:30 Dextrose (D50w Syringe) 25 ml Q15M PRN IV DECREASED GLUCOSE; Start 05/31/18 at 08:30 Dextrose (D50w Syringe) 50 ml Q15M PRN IV DECREASED GLUCOSE; Start 05/31/18 at 08:30 Glucagon (Glucagen) 1 mg Q15M PRN IM DECREASED GLUCOSE; Start 05/31/18 at 08:30 Glucose (Glutose) 15 gm Q15M PRN BUCCAL DECREASED GLUCOSE; Start 05/31/18 at 08:30 Metronidazole 100 ml @ 100 mls/hr Q8 IVPB Last administered on 06/01/18at 06:26; Admin Dose 100 MLS/HR; Start 05/31/18 at 15:30 Insulin Aspart (Novolog Insulin Pen) (Adult SC Insulin - Moder... WITH MEALS BEDTIME SC ; Start 06/01/18 at 11:40 RUPALI CARVALHO MD 06/01/18 1533: Assessment/Plan Assessment/Plan Assessment/Plan seeen and examined with INFORMATION SERVICES TECH NO ABDO PAIN DC HOME WITH ABX Result Diagram: 06/01/18 0444 06/01/18 0444 FELIPE DELANEY Jun 01, 2018 12:55 RUPALI CARVALHO MD Jun 01, 2018 15:33
--- NOTE | 2018-06-01 13:21 | PDOCDIS ---
Discharge Instructions DIAGNOSIS Discharge Diagnosis acute cholecystitis CONDITION [id number] Patient Condition: [id number] Stable HOME CARE INSTRUCTIONS: [id number] Special Diet: Izyin1g low fat diet ACTIVITY: [id number] Activity Restrictions: [id number] Slowly Increase Activity Rest between Activity Avoid heavy lifting FOLLOW UP/APPOINTMENTS Follow-up Plan PCP 1 week SCHOOL/WORK RELEASE May return to School/Work with: With Restrictions FELIPE DELANEY Jun 01, 2018 13:21
[2018-06-01] MEDS ORDERED: METR500T PO (13:31)
[2018-06-01] MEDS ORDERED: AMOX1TAB9 PO (13:31)
--- NOTE | 2018-06-01 13:32 | DS ---
Date/Time of Note Date/Time of Note DATE: 06/01/18 TIME: 13:32 Discharge Summary Admission/Discharge Info Admit Date/Time May 30, 2018 at 21:50 Discharge Date/Time Discharge Diagnosis acute cholecystitis Patient Condition: Stable Consults Dr Cross, surgery, dr Burk, cardiology Procedures HIDAS scan Hospital Course This is a 62-year-old male with a past medical history of noninsulin dependent diabetes mellitus, hypertension, tobacco use, BPH, dyslipidemia, who was recently admitted and discharged in 03/2018 secondary to a CABG and aortic valve replacement. Patient was discharged in stable condition. Patient said that he has been doing fine until today. He had eaten a pizza and also ate some fajitas, after that started having lower abdominal pain. According to the patient, last 2 days he was not passing gas but finally passed some gas, it made him worried, and came to the emergency department. He was also having some nausea and some episodes of vomiting. According to the patient, he also had an episode 4 years ago. On arrival to the ED, vital signs initially blood pressure was 214/134, then 183/82, heart rate of 101, white count was 13.1, hemoglobin 11.4, platelet count 262, glucose of 303, LFTs within normal limit, total bilirubin 0, lipase was 158. UA showed 3+ glucose, 2+ protein, trace ketones. The patient had CT of the abdomen and pelvis that showed findings suggestive of acute cholecystitis, no evidence of bowel obstruction or inflammation, no appendicitis, no renal or ureteral calculi, bladder calcification, fat- containing upper abdominal midline hernia. Also had a gallbladder ultrasound that showed normal sonographic findings. The patient was admitted for further management. Patient has also been seen by Dr. Cross currently. 1. Diffuse lower abdominal pain with some mild tenderness in the right upper quadrant. CT of the abdomen and pelvis suggestive of acute cholecystitis; however, ultrasound is negative. HIDA is negative. 2. Diabetes mellitus uncontrolled. 3. Leukocytosis. 4. Hypertension. 5. Hyperlipidemia. 6. 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 7. Tobacco use. 8. History of BPH. During hospitalization pt was in med/surg unit.Prior confirmation of his diagnosis he was is n.p.o. US abdomen and Ct scan had differences, so dr Cross, surgical consult ordered HIDA scan, HIDA was negative. Pt after ER was c.w IV antibiotics. Cardiology consult Dr Burk was called to rule out cardiologic complications due to recent cardiac surgery. GI prophylaxis was achieved with Protonix, DVT prophylaxis SCD. Pt tolerated soft low fat diet and was d/c home in stable condition. Home Meds Active Scripts Amoxicillin/Potassium Clav (Amox-Clav 500-125 mg Tablet) 500-125 mg Tab, 1 TAB PO BID for 8 Days, #16 TAB Prov:FELIPE DELANEY 06/01/18 Metronidazole* (Flagyl*) 500 Mg Tablet, 500 MG PO BID for 10 Days, TAB Prov:VIVIANE DELANEYA 06/01/18 Lisinopril* (Lisinopril*) 5 Mg Tablet, 5 MG PO DAILY for 30 Days, #30 TAB Prov:RUPALI CARVALHO MD 04/25/18 Atorvastatin* (Atorvastatin*) 40 Mg Tablet, 40 MG PO HS for 30 Days, TAB Prov:RUPALI CARVALHO MD 04/25/18 Furosemide* (Furosemide*) 40 Mg Tablet, 40 MG PO DAILY for 30 Days, TAB Prov:RUPALI CARVALHO MD 04/25/18 Metoprolol Tartrate* (Lopressor*) 50 Mg Tab, 50 MG PO BID for 60 Days, TAB Prov:RUPALI CARVALHO MD 04/25/18 Nitroglycerin* (Nitroglycerin* SL) 0.4 Mg Tab.subl, 1 TAB SL Q5M PRN for ANGINA for 14 Days, #30 Prov:HERB PADGETT MD 02/19/18 Reported Medications Insulin Glargine* (Lantus*) 100 Unit/Ml Soln, 50 UNIT SC QHS, #1 VIAL 05/30/18 Ergocalciferol (Vitamin D2) (VITAMIN D2) 2,000 Unit Tablet, 2000 UNIT PO DAILY, TAB 04/18/18 Glipizide* (Glipizide*) 10 Mg Tablet, 10 MG PO BID, TAB 04/18/18 Metformin Hcl* (Metformin Hcl*) 1,000 Mg Tablet, 1000 MG PO WITH BREAKFAST DINNE, #60 TAB 04/18/18 Sitagliptin* (Januvia*) 100 Mg Tablet, 100 MG PO DAILY, #30 TAB 02/16/18 Aspirin* (Aspirin* EC) 81 Mg Tablet.dr, 81 MG PO DAILY, TAB 02/16/18 Tamsulosin Hcl* (Tamsulosin Hcl*) 0.4 Mg Cap.er.24h, 0.4 MG PO HS, CAP 02/16/18 Discontinued Scripts Oxycodone HCl/Acetaminophen (Oxycodone-Acetaminophen 5-325) 1 Each Tablet, 1 TAB PO Q3H PRN for PAIN LEVEL 1-5 for 14 Days, TAB Prov:RUPALI CARVALHO MD 04/25/18 Follow-up Plan PCP 1 week Primary Care Provider Not On Staff Doctor Time spent on discharge: < 30 minutes Pending Labs Laboratory Tests Test 05/31/18 17:41 05/31/18 20:56 06/01/18 01:53 06/01/18 04:44 Bedside 129 163 163 Glucose mg/dL (70-220) mg/dL (70-220) mg/dL (70-220) White Blood 7.8 Count 10^3/ul (4.8-1 0.8) Red Blood 4.02 Count 10^6/ul (4.70- 6.10) Hemoglobin 10.9 g/dl (14.0-18. 0) Hematocrit 32.5 % (42.0-52.0) Mean 80.8 Corpuscular fl (82.0-101.0 Volume ) Mean 27.1 Corpuscular pg (29.0-33.0) Hemoglobin Mean 33.5 Corpuscular g/dl (32.0-37. Hemoglobin Conc 0) ent Red Cell 13.2 Distribution % (11.5-14.5) Width Platelet Count 228 10^3/UL (140-4 15) Mean Platelet 10.2 Volume fl (7.4-10.4) Immature 0.400 Granulocytes % % (0.001-0.429 ) Neutrophils % 60.3 % (39.0-77.0) Lymphocytes % 28.6 % (15.0-51.0) Monocytes % 7.3 % (0.0-11.0) Eosinophils % 3.0 % (0.0-7.0) Basophils % 0.4 % (0.0-2.0) Nucleated Red 0.0 Blood Cells % /100WBC (0.0-0 .0) Immature 0.030 Granulocytes # 10^3/ul (0.0-0 .031) Neutrophils # 4.7 10^3/ul (1.6-7 .5) Lymphocytes # 2.2 10^3/ul (0.8-2 .9) Monocytes # 0.6 10^3/ul (0.3-0 .9) Eosinophils # 0.2 10^3/ul (0.0-0 .5) Basophils # 0.0 10^3/ul (0.0-0 .1) Nucleated Red 0.0 Blood Cells # 10^3/ul (0.0-0 .0) Sodium Level 139 mmol/L (135-14 4) Potassium 3.6 Level mmol/L (3.5-5. 1) Chloride Level 101 mmol/L (97-110 ) Carbon Dioxide 32 Level mmol/L (21-31) Anion Gap 6 (5-13) Blood Urea 20 Nitrogen mg/dl (7-20) Creatinine 0.93 mg/dl (0.61-1. 24) Est Glomerular > 60 Filtrat mL/min (>60) Rate mL/min Glucose Level 192 mg/dl (70-220) Calcium Level 9.0 mg/dl (8.4-10. 2) Total 0.3 Bilirubin mg/dl (0.2-1.3 ) Direct 0.00 Bilirubin mg/dl (0.00-0. 20) Indirect 0.3 Bilirubin mg/dl (0-1.1) Aspartate Amino 23 Transf (AST/SGO IU/L (15-46) T) Alanine 21 Aminotransferas IU/L (13-69) e (ALT/SGPT) Alkaline 98 Phosphatase IU/L (42-121) Total Protein 6.8 g/dl (6.1-8.1) Albumin 3.5 g/dl (3.3-4.9) Globulin 3.30 g/dl (1.3-3.2) Albumin/Globuli 1.06 n Ratio Test 06/01/18 04:49 06/01/18 08:36 06/01/18 12:53 Bedside 187 178 203 Glucose mg/dL (70-220) mg/dL (70-220) mg/dL (70-220) FELIPE DELANEY Jun 01, 2018 13:32
[2018-06-01] MEDS ORDERED: INSULIN ASPART [NOVOLOG] 3 ML PEN SC SCH (17:25)
== END 2018-06-01 15:35 | disposition home or self-care (01) | DRG 446 ==
LOC: E/R 19:52 → MS1 21:50
PROVIDERS: ADMIT Internal Medicine Nephrology; ATTEND Internal Medicine Nephrology
DX: K81.0 Acute cholecystitis (principal); E11.9 Type 2 diabetes mellitus without complications; I10 Essential (primary) hypertension; Z72.0 Tobacco use; E78.5 Hyperlipidemia, unspecified; Z95.1 Presence of aortocoronary bypass graft; N40.0 Benign prostatic hyperplasia without lower urinary tract symptoms; Z95.2 Presence of prosthetic heart valve; E66.9 Obesity, unspecified; Z68.37 Body mass index [BMI] 37.0-37.9, adult
CPT/HCPCS: 36415; 71045; 74176; 76705; 78226; 80053; 81001; 82962; 83036; 83690; 84484; 85025; 85610; 85730; 93005; 96374; 96375; 96376; A9537; C9113; J0295; J0360; J0696; J1170; J1815; J2270; J2405; J7042